=== PATIENT | female | born 1995 | race Hispanic/Latino ===

== ENCOUNTER → 2016-07-23 | Outpatient (CLI) | payer OTHER ==
[2016-07-23 16:20] LABS: HEMATOCRIT 40.7 % (37.0-47.0); MEAN CORPUSCULAR HEMOGLOBIN 25.4 PG (27-31); MEAN CORPUSCULAR HGB CONC 31.9 g/dL (33-37); MEAN PLATELET VOLUME 11.5 FL (7.4-12.2); RED BLOOD COUNT 5.12 10^6/uL (4.20-5.40)
[2016-07-23 16:26] LABS: BLOOD UREA NITROGEN 15 mg/dL (7-22); BUN/CREATININE RATIO 21.42 (6-20); CALCIUM 9.4 mg/dL (8.7-10.7); EST GLOMERULAR FILTRATION > 60 (>60 ml/min/1.73m(2)); SERUM ALBUMIN 4.4 g/dL (3.5-4.8)
[2016-07-23 18:02] LABS: FERRITIN 9.06 ng/mL (12.00-336.70)
== END ==
LOC: MOB LAB 15:28
PROVIDERS: ATTEND Nurse Practitioner Family
DX: R53.82 Chronic fatigue, unspecified (principal); M54.89 Other dorsalgia; F41.9 Anxiety disorder, unspecified; F32.9 Major depressive disorder, single episode, unspecified
CPT/HCPCS: 36415; 80053; 82306; 82607; 82728; 83540; 83550; 84443; 85027

== ENCOUNTER → 2016-08-30 | Outpatient (CLI) | payer SELFPAY ==
--- NOTE | 2016-08-30 12:13 | DI ---
LEFT WRIST, 08/30/2016 10:55 AM: Clinical History: Bilateral wrist pain. Previous Exam: None at this facility. 3 views are submitted. There is no acute soft tissue, osseous, or joint abnormality. Reading: Normal left wrist exam.
--- NOTE | 2016-08-30 12:13 | DI ---
RIGHT WRIST, 08/30/2016 10:55 AM: Clinical History: Bilateral wrist pain. Previous Exam: None at this facility. 3 views are submitted. There is no acute soft tissue, osseous, or joint abnormality. Reading: Normal right wrist exam.
== END ==
LOC: ORTHO 11:35
PROVIDERS: ATTEND Orthopaedic Surgery
DX: M25.531 Pain in right wrist (principal); M25.532 Pain in left wrist; G56.03 Carpal tunnel syndrome, bilateral upper limbs
CPT/HCPCS: 73110